=== PATIENT | male | born 1955 | race Caucasian/White ===

== ENCOUNTER → 2016-06-01 | Outpatient (CLI) | payer BC, MEDICARE ==
[~2016-06-01] MED LIST: AMBIEN PO; AMBIEN10 MG PO; ASPIRIN81 M2 PO; AXIRON30 MG/1.5; AXIRON90 ML TD; BYSTOLIC20 MG PO; FAMOTIDINE20 M1 PO; FAMOTIDINE20 MG PO; FLEXERIL10 MG PO; FLOMAX0.4 M1; FUROSEMIDE40 MG PO; GABAPENTIN400 M2 PO; HUMALOG MIX 75/10 ML SUBQ; HYDROCODON-ACE1 EAC7 PO; HYZAAR PO; LANTUS100 U/ML INJ; LIPITOR PO; LORAZEPAM1 MG PO; LOVAZA1 G PO; LOVAZA1 GM PO; MORPHINE SULFAT30 M3 PO; NORCO 10/3251 TAB; NOVOLOG MI100 UNIT/1 SUBQ; OLMSRTN-AMLDPN1 EAC4 PO; SYMLINPEN 1202.7 ML; SYMLINPEN2700 MCG/2; TOPROL XL PO; TRESIBA FL200 UNIT/1 SUBQ; VITAMIN D35000 UNIT PO; VITAMIN D350000 UNIT PO; ZESTRIL2.5 M1 PO; ZYLOPRIM100 MG PO
--- NOTE | ~2016-06-01 | CR63 ---
[facility] A Service of [facility] & [facility] RADIOLOGY TEXT RESULTS PATIENT: MIGUEL MALAVE LOCATION: [facility] : 57 UNIT #: [id number] AGE: [address]: Chuy Marin MD SEX: M ORDER DR: [id number] [facility] [address]. [place], [place] [address] [id number] O MR#: [id number] Acc #: [id number] NAME: MIGUEL MALAVE : 1955 SEX: M STUDY DATE/TIME: 06/01/2016 9:44 UNIT: [facility] ROOM: STUDY DESCRIPTION: CR Chest 2 View Attending Physician: Chuy Marin M.D. Ordering Physician: Chuy Marin M.D. Primary Care Physician: Gabe Cardoza M.D. MEDICAL IMAGING REPORT This report is preliminary unless electronic signature is present EXAM Chest 2 views dated 06/01/2016 COMPARISON Chest 2 views dated 06/18/2015. HISTORY Preop evaluation for left knee surgery. Shortness of air and cough today. FINDINGS 2 views of the chest were obtained. No acute cardiopulmonary disease. Lungs are well aerated. Heart and mediastinum are of normal size. Contiguous anterior endplate osteophytes are noted at multiple levels of the thoracic spine. Differential consideration includes diffuse idiopathic skeletal hyperostosis and ankylosing spondylitis. Dictated by... Sara Wells M.D. THIS IS AN ELECTRONICALLY VERIFIED REPORT Sara Wells M.D. at 06/02/2016 4:57 PM CPR/rnr TD: 06/01/2016 14:51 JOB #: [id number] MEDICAL IMAGING REPORT COPY
--- NOTE | ~2016-06-01 | CO ---
Unit #: [id number] #: [id number] Patient: MIGUEL MALAVE [id number] [address] [place], [place] [address] [id number] O MR#: [id number] NAME: MIGUEL MALAVE ROOM: Age: 61 Sex: M Admission Date: 06/01/2016 : 1955 Attending Physician: Chuy Marin M.D. Primary Care Physician: Gabe Cardoza M.D. Consultation Date: 06/01/2016 CONSULTATION REPORT REASON FOR CONSULTATION Preop medical evaluation prior to left total knee arthroplasty scheduled by Dr. Marin for 06/13/16. HISTORY OF PRESENT ILLNESS The patient is a 61-year-old male who presents to pre-procedural screening for the reasons indicated above. He has had a history of left knee pain and has complaints of the same during this interview today. He has no other complaints. He has been evaluated by Dr. Marin and scheduled for the above reference procedure. He denies chest, arm, neck, jaw pain or pressure. Denies dyspnea on exertion, paroxysmal nocturnal dyspnea, and orthopnea. He has a history of obstructive sleep apnea for which he uses auto adjusting VPAP with O2 titrated in on level 2. He denies palpitations, dizziness, presyncope or syncope. He will have intermittent lightheadedness with rapid position changes that resolve and has not resulted in falls or the need to sit down. He denies myocardial infarction, congestive heart failure, CVA, TIA, severe kidney disease or renal failure. He is diabetic on insulin. PAST MEDICAL HISTORY 1. Obesity, BMI 35. 2. Obstructive sleep apnea with VPAP use with O2 titrated and on level 2. 3. Hypertension. 4. Benign prostatic hypertrophy. 5. Hyperlipidemia. 6. History of chronic low back pain, established with Dr. Oneal in pain management. 7. History of back surgery, HNP and spinal fusion. 8. Neuropathy in bilateral feet, likely secondary to insulin dependent diabetes mellitus. 9. History of numbness of the right fifth finger. 10. Insomnia. 11. Anxiety. 12. Vitamin D deficiency. 13. Low testosterone. PAST SURGICAL HISTORY 1. Back surgery x3. 2. Bilateral carpal tunnel release. 3. Tonsillectomy. 4. Left knee arthroscopy. The patient denies a personal and family history of complications to Unit #: [id number] #: [id number] Patient: MIGUEL MALAVE anesthesia. ALLERGIES No known medication allergies. Denies latex allergies. Reports adverse reaction of feeling "jittery" if morphine given IV. CURRENT MEDICATIONS 1. [place] 10/325 mg tab, one p.o. b.i.d. p.r.n. pain. 2. NovoLog mix 70/30 FlexPen. 3. U100 insulin, one unit subcu b.i.d. per sliding scale. 4. Tresiba Flex Touch U200, 80 units b.i.d. 5. SymlinPen 60-120 units depending on blood sugar. 6. Flexeril 10 mg p.o. at bedtime. 7. Gabapentin 400 mg p.o. t.i.d. 8. Morphine sulfate ER 30 mg p.o. b.i.d. 9. Axiron 30 mg transdermally, two pumps under each arm daily. 10. Ambien 10 mg p.o. at bedtime p.r.n. insomnia. 11. Lorazepam 1 mg p.o. each evening. 12. Aspirin 81 mg p.o. daily. 13. Olmesartan/amlodipine/hydrochlorothiazide 40/10/25 mg tab, one p.o. daily. 14. Flomax 0.4 mg p.o. daily. 15. Bystolic 40 mg p.o. daily in the morning. 16. Lovaza 2 g p.o. daily. 17. Furosemide 40 mg p.o. daily. 18. Vitamin D3 5000 units p.o. daily. SOCIAL HISTORY Denies tobacco use and illicit drug use. Occasionally drinks a beer. FAMILY HISTORY Per review of Dr. Marin's office note and confirmation with the patient today: Father - stroke, cancer, high cholesterol and diabetes. Mother - hypertension, high cholesterol and diabetes. REVIEW OF SYSTEMS Rare episode of lightheadedness with standing too quickly and/or bending forward and standing up without associated symptoms. Denies bilateral lower extremity edema. Last dental visit approximately one year ago without painful teeth or gums. Established with Dr. Oneal as chronic pain management physician. A ten point review of systems was conducted and otherwise negative except as indicated under history of present illness above. PHYSICAL EXAMINATION GENERAL: 61-year-old male awake, alert, in no acute distress. VITAL SIGNS: Temperature 97.7, heart rate 60, respiratory rate 20, blood pressure 131/77. Oxygen saturation 96% on room air. HEENT: Atraumatic, normocephalic. Sclerae anicteric. No discharge from eyes, ears or nares. LYMPHS: No preauricular, postauricular, tonsillar, submental, anterior or posterior cervical adenopathy. ENDOCRINE: No thyromegaly, thyroid nodules or tenderness. RESPIRATORY: Clear to auscultation in all dotson bilaterally without wheezes, rhonchi or rales. CARDIOVASCULAR: S1, S2. Regular rate and rhythm without murmur or rub. GI: Bowel sounds positive x4 quadrants. Soft, nontender, nondistended. EXTREMITIES: No edema, cyanosis or clubbing. Unit #: [id number] #: [id number] Patient: MIGUEL MALAVE MUSCULOSKELETAL: Strength 5/5 all extremities bilaterally to flexion and extension. No obvious atrophy or tenderness. NEUROLOGICAL: Alert and oriented x3. Speech clear. Moves all extremities bilaterally and follows commands. DIAGNOSTIC STUDIES LABORATORY: WBC 7.5, hemoglobin 14.3, hematocrit 42.9, platelet count 153,000. Sodium 141, potassium 4.3, chloride 105, pO2 30, glucose 168, BUN 25, creatinine 1.2, calcium 8.8, AST 35, ALT 49, alkaline phos 80, bili total 0.8, total protein 6.7, albumin 3.8. Urinalysis negative without microscopic or culture indicated. PT 11.6, INR 1.1. Blood type A positive. Antibody screen pending at this time. MRSA screen pending. IMAGIN view chest x-ray report pending at this time. CARDIOVASCULAR: 12-lead EKG - sinus bradycardia, minimal voltage criteria for LVH, may be normal variant. Borderline ECG. Confirm tracing heading at this time. IMPRESSION Patient is a 61-year-old male who presents to pre-procedural screening for: 1. Preoperative evaluation prior to left total knee arthroplasty, scheduled by Dr. Marin: The patient's [place] Revised Cardiac Risk Index is equal to 0.4%. This represents the patient's perioperative risk of cardiac , fatal or nonfatal myocardial infarction, cardiopulmonary arrest, arrhythmia and/or pulmonary edema. This has been discussed in detail with the patient and he wishes to proceed with surgery as scheduled at this time. 2. Obstructive sleep apnea: The patient has been advised to bring his VPAP from home for use on home settings postoperatively and he has verbalized understanding of this information. The patient will be placed on SHANE protocol. 3. Obesity, BMI 35: Weight loss to recommended BMI is suggested. 4. Hypertension: Blood pressure is stable at this time. Will monitor and adjust medications and IV fluids accordingly. 5. Benign prostatic hypertrophy: Will continue Flomax and monitor for postoperative urinary retention. 6. Gastroesophageal reflux disease, stable. 7. Hyperlipidemia: Fish oil will be discontinued per order of Dr. Marin. 8. Chronic pain, history of back surgery, HNP and spinal fusion: The patient is established with Dr. Oneal. The patient tells me Dr. Oneal will manage his pain medication postoperatively. 9. Neuropathy both feet: The patient will be placed on fall precautions. 10. History of numbness right fifth finger. 11. Insulin dependent diabetes mellitus: Will continue home medications based on oral intake, postoperative Accu-Cheks. Will recommend constant carbohydrate diet as well. 12. Insomnia: Medications will be held pending pharmacy's recommendations for SHANE protocol postoperatively. Unit #: [id number] #: [id number] Patient: MIGUEL MALAVE 13. Anxiety: Lorazepam will be held per pharmacy recommendations/obstructive sleep apnea protocol. 14. Vitamin D deficiency: Will continue supplement. 15. Low testosterone: I have spoken with the clinical pharmacist and there is no recommendation in the literature which supports the need for the patient to discontinue testosterone perioperatively. Thank you for allowing us to participate in the care of this patient. Will gladly follow postop medical management pending order of Dr. Marin. Dictated by... Lisa Forrest A.P.R.N. for Shanel Grimes/jimmy TD: 06/02/2016 07:20 JOB #: [id number] CONSULTATION REPORT X Lisa Forrest APRN X CONSULTATION REPORT
--- NOTE | ~2016-06-01 | EKG ---
PATIENT: MIGUEL MALAVE UNIT #: [id number] Ventricular Rate: 57 BPM Atrial Rate: 57 BPM P-R Interval: 152 ms QRS Duration: 102 ms Q-T Interval: 424 ms QTC Calculation(Bezet): 412 ms P [place]: 30 degrees Calculated R [place]: -10 degrees Calculated T [place]: 6 degrees Diagnosis Line: Sinus bradycardia Diagnosis Line: Minimal voltage criteria for LVH, may be normal Diagnosis Line: variant Diagnosis Line: Otherwise normal ECG Diagnosis Line: No previous ECGs available Diagnosis Line: Confirmed by TRAVIS RESENDIZ MD ([id number]) on 06/02/2016 Diagnosis Line: 6:17:09 PM INTERPRETING MD: MARTÍN DUVAL
[2016-06-01 10:16] LABS: HEMATOCRIT 42.9 % (38.0-50.0); HEMOGLOBIN 14.3 gm/dL (13.0-16.0); MEAN CELL VOLUME 87.1 FL (83-96); MEAN CORPUSCULAR HEMOGLOBIN 29.1 PG (28-34); MEAN CORPUSCULAR HGB CONC 33.4 g/dL (30-36); RED BLOOD COUNT 4.92 X10e (3.90-5.60); RED CELL DISTRIBUTION WIDTH 13.7 % (11.0-15.5); WHITE BLOOD COUNT 7.5 X10e3 (4.0-10.5)
[2016-06-01 10:20] LABS: URINE APPEARANCE CLEAR; URINE BILIRUBIN NEG (NEG); URINE BLOOD NEG (NEG); URINE COLOR YELLOW; URINE GLUCOSE NEG (NEG); URINE KETONE NEG (NEG); URINE LEUKOCYTE ESTERASE NEG (NEG); URINE NITRATE NEG (NEG); URINE PROTEIN NEG (NEG); URINE SPECIFIC GRAVITY 1.022 (1.003-1.035)
[2016-06-01 10:24] LABS: URINE SOURCE CLEAN CATCH
[2016-06-01 10:25] LABS: CULTURE INDICATED? NO
[2016-06-01 10:30] LABS: INR 1.1; PROTHROMBIN TIME (PATIENT) 11.6 SECONDS (9.6-11.5)
[2016-06-01 11:18] LABS: ALBUMIN SERUM 3.8 g/dL (3.5-5.0); ALKALINE PHOSPHATASE 80 U/L (32-92); ALT (SGPT) 49 U/L (10-40); AST (SGOT) 35 U/L (10-42); BILIRUBIN,TOTAL 0.8 mg/dL (0.2-2.0); BLOOD UREA NITROGEN 25 mg/dL (9-23); BUN/CREATININE RATIO 20.83; CALCIUM SERUM 8.8 mg/dL (8.4-10.2); CARBON DIOXIDE 30 mmol/L (22-31); CHLORIDE 105 mmol/L (100-111); CREATININE SERUM 1.2 mg/dL (0.6-1.4); GLOM FILT RATE Estimated ABOVE60 mL/min (>60); GLUCOSE FASTING 168 mg/dL (70-110); POTASSIUM 4.3 mmol/L (3.5-5.1); PROTEIN TOTAL SERUM 6.7 g/dL (6.0-8.3); SODIUM 141 mmol/L (135-145)
== END | disposition home or self-care (01) ==
LOC: CAMB 07:40
PROVIDERS: Orthopaedic Surgery
DX: Z01.818 Encounter for other preprocedural examination (principal); M17.12 Unilateral primary osteoarthritis, left knee
CPT/HCPCS: 36415; 71020; 80053; 81003; 83036; 85027; 85610; 86850; 86900; 86901; 87070; 93005

== ENCOUNTER → 2016-07-11 | Outpatient (CLI) | payer BC, MEDICARE ==
[2016-07-11 08:04] LABS: HEMATOCRIT 41.5 % (38.0-50.0); HEMOGLOBIN 14.1 gm/dL (13.0-16.0); MEAN CELL VOLUME 85.8 FL (83-96); MEAN CORPUSCULAR HEMOGLOBIN 29.1 PG (28-34); MEAN CORPUSCULAR HGB CONC 33.9 g/dL (30-36); MEAN PLATELET VOLUME 7.8 FL (6.5-11.5); RED BLOOD COUNT 4.84 X10e (3.90-5.60); RED CELL DISTRIBUTION WIDTH 12.9 % (11.0-15.5); WHITE BLOOD COUNT 6.5 X10e3 (4.0-10.5)
[2016-07-11 08:08] LABS: INR 1.1; PROTHROMBIN TIME (PATIENT) 11.1 SECONDS (9.6-11.5)
[2016-07-11 08:28] LABS: ALBUMIN SERUM 3.6 g/dL (3.5-5.0); BILIRUBIN,TOTAL 0.5 mg/dL (0.2-2.0); BUN/CREATININE RATIO 23.33; CALCIUM SERUM 9.4 mg/dL (8.4-10.2); CREATININE SERUM 1.2 mg/dL (0.6-1.4); GLOM FILT RATE Estimated 65.4 mL/min (>60); POTASSIUM 3.8 mmol/L (3.5-5.1); PROTEIN TOTAL SERUM 6.4 g/dL (6.0-8.3)
[2016-07-11 09:08] LABS: URINE APPEARANCE CLEAR; URINE BILIRUBIN NEG (NEG); URINE BLOOD NEG (NEG); URINE COLOR YELLOW; URINE GLUCOSE NEG (NEG); URINE KETONE NEG (NEG); URINE LEUKOCYTE ESTERASE NEG (NEG); URINE NITRATE NEG (NEG); URINE PH 5.5 (5-8); URINE PROTEIN NEG (NEG); URINE SPECIFIC GRAVITY 1.016 (1.003-1.035)
[2016-07-11 09:12] LABS: URINE SOURCE CLEAN CATCH
[2016-07-11 09:14] LABS: CULTURE INDICATED? NO
== END | disposition home or self-care (01) ==
LOC: CAMB 07:23
PROVIDERS: Orthopaedic Surgery
DX: Z01.812 Encounter for preprocedural laboratory examination (principal); M17.12 Unilateral primary osteoarthritis, left knee; E11.9 Type 2 diabetes mellitus without complications; K21.9 Gastro-esophageal reflux disease without esophagitis; I10 Essential (primary) hypertension; G47.30 Sleep apnea, unspecified; Z79.01 Long term (current) use of anticoagulants
CPT/HCPCS: 36415; 80053; 81003; 83036; 85027; 85610; 86850; 86900; 86901; 87070

== ENCOUNTER 2016-07-18 07:23 | Inpatient (IN) | payer BC, MEDICARE ==
--- NOTE | ~2016-07-18 | OR ---
Unit #: [id number] #: [id number] Patient: MIGUEL MALAVE [id number] [address] [place], [place] [address] [id number] MR#: [id number] NAME: MIGUEL MALAVE ROOM: [facility] Date of Procedure: 07/18/2016 Admission Date: 07/18/2016 Surgeon: Chuy Marin M.D. : 1955 Attending Physician: Chuy Marin M.D. Primary Care Physician: Gabe Cardoza M.D. OPERATIVE REPORT PREOPERATIVE DIAGNOSIS Primary localized osteoarthritis of left knee with severe flexion contracture. POSTOPERATIVE DIAGNOSIS Primary localized osteoarthritis of left knee with severe flexion contracture. PROCEDURE PERFORMED Left total knee. LABORER PIPELINE Frederic. ANESTHESIA Adductor canal block plus general. ESTIMATED BLOOD LOSS About 150 to 200 mL. INDICATIONS FOR PROCEDURE This is a 61-year-old male with severe pain in the left knee. He has severe flexion contractures and has difficulty walking. X-rays show severe arthritis with [id number] changes. He is brought to the operating room for left total knee. DESCRIPTION OF PROCEDURE The patient was given 2 g of Kefzol. This will be continued postoperative, but discontinued within 23 hours from the start time of surgery. He was then given an adductor canal block, brought back to the operating room, given a general anesthetic. Tourniquet placed around the left thigh. The left leg was prepped and draped. Tourniquet inflated to 250. A straight anterior skin incision was made. Subcutaneous dissected away and a medial arthrotomy was performed. Patella was slid to the side. Osteophytes were removed from the femur. The intramedullary guide was used and the distal femur was cut in 6 degrees of valgus. We removed 12 mm of distal femur because of the flexion contracture. The patient then had the femur sized using the Attune sizing guide and was found to be a size 10. The anterior posterior cutting block was applied. The anterior and posterior cuts were made along with the chamfer cuts and then the trochlear groove cut. We then made the proximal tibial cut using a 0-degree cutting block. It was sized and found to be a size 8. Any Unit #: [id number] #: [id number] Patient: MIGUEL MALAVE remaining posterior condylar osteophytes were removed and any remaining meniscal fragments were debrided. The posterior capsule and periosteum were injected with ropivacaine. The trial femur was applied along with the trial tibia and we found that we needed a 5 mm insert. The knee had excellent extension and rotation. The tibia was marked. The alignment was appropriate as was the stability. We then measured the patella. It was found to be 26 mm thick, it was cut smooth at 14 and a 41 patella was the appropriate size. The 3 drill holes were made. Trial patella applied and it tracked properly. We then removed all the trials, used the drill and punch for the tibial tray. The knee was irrigated and dried while the cement was mixed and then all 3 components were cemented simultaneously. Once again, it was a size 10 femur cruciate retaining, size 8 tibia and a 41 patella from the Attune knee system. After the cement was hardened, then all the excess cement was removed. The 5 mm insert was applied. The patient then had the tourniquet released. The wound was irrigated with Betadine and bacitracin. The rest of the ropivacaine mixture was injected. The wound was closed using 0 Ethibond in the arthrotomy, 0 and 2-0 Vicryl in the subcutaneous, and Prineo Dermabond material was used in the skin. fast food assistant restaurant manager, Colin Conley was present throughout the entire case. Dictated by... Shanel Bah/ti TD: 07/19/2016 08:55 JOB #: [id number] OPERATIVE REPORT Page 1 of 1 X Chuy Marin MD X PROCEDURE OPERATIVE NOTE
--- NOTE | ~2016-07-18 | CO ---
Unit #: [id number] #: [id number] Patient: MIGUEL FINCH [id number] [address] [place], [place] [address] [id number] I MR#: [id number] NAME: MIGUEL FINCH ROOM: [facility] Age: 61 Sex: M Admission Date: 07/18/2016 : 1955 Attending Physician: Chuy Marin M.D. Primary Care Physician: Gabe Cardoza M.D. Consultation Date: 07/19/2016 CONSULTATION REPORT REASON FOR CONSULT Mild acute on chronic kidney disease. HISTORY OF PRESENT ILLNESS Mr. Finch is a very pleasant 61-year-old white male who is status post left total knee replacement yesterday whom we were asked to see for a slight bump in his postsurgery creatinine. Patient is followed by Dr. Ruelas at the office and was last seen in May where lisinopril was added. He is maintained on Tribenzor for his blood pressure and is a long-term diabetic. It looks like his baseline creatinine according to Dr. Ruelas is in the low 1s up to 1.55. His creatinine this morning was a little bit above that prompting this consultation. He has been getting pain medication, and his blood pressure has been running a little bit low. He is urination freely without a Ibrahim. He denies any shortness of breath, no swelling, no rashes, and no fevers or chills. PAST MEDICAL HISTORY 1. Chronic kidney disease. 2. Hypertension. 3. Diabetes. 4. Hyperlipidemia. 5. Benign prostatic hypertrophy. 6. Gastroesophageal reflux disease. 7. Chronic back pain. 8. Neuropathy. 9. Insomnia. 10. Anxiety. 11. Vitamin D deficiency. 12. Low testosterone. PAST SURGICAL HISTORY 1. Multiple back surgeries. 2. Carpal tunnel surgery. 3. Tonsillectomy. 4. Left knee arthroscopy. CURRENT MEDICATIONS 1. Levemir insulin as directed. 2. Coumadin as directed. 3. Lovenox 40 mg subcutaneous daily. 4. Normal saline at 100 mL/hour. 5. Celebrex was discontinued. 6. Senokot S twice daily. 7. MS Contin 30 mg twice daily. Unit #: [id number] #: [id number] Patient: MIGUEL FINCH 8. Ativan 1 mg at bedtime. 9. Baby aspirin daily. 10. Benicar 40 mg daily. 11. Norvasc 10 mg daily. 12. Hydrochlorothiazide 25 mg daily. 13. Flomax 0.4 mg daily. 14. Lasix 40 mg daily. 15. Ambien at bedtime. 16. Neurontin 400 mg t.i.d. 17. Pepcid 20 mg daily. 18. Allopurinol 100 mg daily. 19. Lisinopril 2.5 mg daily. 20. Coreg 25 mg twice daily. 21. Prospect-3 fish oil daily. 22. Sliding scale insulin. 23. P.r.n.s that do not contain any NSAIDS. ALLERGIES MORPHINE. FAMILY HISTORY Diabetes, stroke, cancer, and high cholesterol, as well as some hypertension. No family history of kidney problems or dialysis. SOCIAL HISTORY Patient is a former smoker according to our records. No alcohol or drug abuse. He has a very supportive present today. REVIEW OF SYSTEMS A complete 12-point review of systems was completed with the above findings. In addition, he denies any headaches or dizziness, no nosebleed, sore throat, or earache, no chest pain or palpitations, no cough or hemoptysis, no nausea, vomiting, or diarrhea, no dysuria or hematuria, no night sweats or hot flashes, no intolerance to heat or cold, no postop bleeding issues today, and no recent weight changes. Unless otherwise indicated, the review of systems was negative. PHYSICAL EXAMINATION VITAL SIGNS: Patient is afebrile, pulse 74, respiratory rate 18, and blood pressure 141/65 but did drop to as low as 105/50. Urine output has been 1550 mL. GENERAL: This is a 61-year-old male alert, oriented x3, and currently in no acute distress. HEENT: Head is atraumatic and normocephalic. Eyes show pink conjunctivae with no scleral icterus. No nasal drainage or nosebleed. Oropharynx is moist with narrow posterior pharyngeal airway. NECK: Thick with no JVD. HEART: Regular rate and rhythm with no significant murmur or rub appreciated. LUNGS: Clear with no wheezing or rhonchi. Breathing is nonlabored. ABDOMEN: Mildly obese, soft, and nontender. Bowel sounds are present without masses. No suprapubic fullness. EXTREMITIES: No lower extremity cyanosis or pitting edema. SKIN: Dry with no rashes. His left knee is bandaged. MUSCULOSKELETAL: No CVA tenderness to palpation. NEUROLOGIC: Cranial nerves are grossly intact with no gross motor deficits. LYMPHATICS: No neck cervical lymphadenopathy. Unit #: [id number] #: [id number] Patient: MIGUEL FINCH PSYCHIATRIC: Mood and affect appear normal. DIAGNOSTIC STUDIES LABORATORY: Urinalysis was benign with no blood or protein but did have glucose present. Last sugar was 420. Chemistry this morning noteworthy for a sodium of 135, potassium 5.1, chloride 101, bicarb 25, glucose 472, BUN 52, creatinine 1.7, and magnesium 1.8. Hemoglobin was 11.3. Again, baseline creatinine according to Dr. Ruelas's records is a creatinine up to 1.55, but his preop creatinine on July 11 was 1.2. Previous urines here have been benign as well. ASSESSMENT AND PLAN 1. Acute kidney injury. This is mild and appears to be related to the postoperative period with relatively low blood pressures while on an angiotensin receptor jose luis, diuretics, and an MAHOGANY inhibitor. These offending medicines will be held, and he is getting IV fluids. I do expect recovery, and hopefully, we will see better numbers tomorrow. No other workup needed at this time unless his kidney function does not improve. 2. Chronic kidney disease stage 3. Patient has known chronic kidney disease from hypertension and diabetes. He will need either his MAHOGANY inhibitor or his angiotensin receptor jose luis terminal carman. 3. Hypertension. We will relax blood pressure medicine in the postoperative period due to his pain medication causing lower blood pressures. These can be titrated further at home if needed. 4. Type 2 diabetes with acute poor control being managed by Medicine. 5. Status post left total knee replacement with all nonsteroidal antiinflammatory drugs held. 6. History of obstructive sleep apnea. 7. Hyperuricemia. Dr. Ruelas had recently started allopurinol, so I will update his uric acid level. 8. Benign prostatic hypertrophy with no urinary issues. I would like to thank Lisa Forrest, nurse practitioner, for this consult and the opportunity to participate in evaluation and care of Mr. Finch. Dictated by... Lio Kulwant Fontanez Jr., M.D. SJK/radha TD: 07/19/2016 16:17 JOB #: [id number] CONSULTATION REPORT Page 1 of 1 X Lio Fontanez MD X CONSULTATION REPORT
--- NOTE | ~2016-07-18 | DS ---
Unit #: [id number] #: [id number] Patient: MIGUEL MALAVE [id number] [facility] [address]. [place], [place] [address] [id number] I MR#: [id number] NAME: MIGUEL MALAVE ROOM: [facility] Age: 61 Sex: M Admission Date: 07/18/2016 : 1955 Discharge Date: 07/20/2016 Attending Physician: Chuy Marin M.D. Primary Care Physician: Gabe Cardoza M.D. DISCHARGE SUMMARY CONSULT PHYSICIAN Renal, which is Dr. Fontanez and [facility] for medical management. REASON FOR ADMISSION Severe osteoarthritis left knee. PROCEDURE Left total knee arthroplasty. HOSPITAL COURSE The patient was admitted to [facility] after a long history of severe osteoarthritis of the left knee. The patient has undergone the above procedure. Today the patient is in stable condition. His temperature is 98, blood pressure 125/54, his heart rate 62 and regular, respirations 16. His incision is healing well. His neurovascular exam is intact. He had 2+ pulses in his lower extremity. He did have a bump in his creatinine where he went up to 1.7. Renal recommends discontinuing lisinopril for now. The patient should have a regular follow up with his regular renal doctor postoperatively per the patient. The plan will be to send the patient to [facility]. DISPOSITION [facility] and then followed by [facility] after that. PERTINENT LABS His INR is 1.7. His creatinine is 1.3, hemoglobin 11.7. MEDICATIONS PER MED REC LIST He will be on his regular home medications. We will discontinue his lisinopril per renal. Will add Coumadin for DVT prophylaxis and [place] for pain management. FOLLOWUP INSTRUCTIONS 1. The patient will be transferred to [facility]. 2. He will need PT/INR done on 07/20/2016, 07/21/2016, 07/22/2016, 07/25/2016, 07/28/2016, 08/01/2016, 08/04/2016, 08/08/2016, 08/11/2016, 08/15/2016 and call the results to [phone] or fax to [phone]. 3. The patient should wear ALECIA hose during the day and off at night. 4. The patient should not drive until seen by Dr. Marin on 08/30/2016. 5. The patient will participate in physical therapy including active, active assist range of motion strengthening, progressive ambulation begin with a walker, progress to cane as tolerated. 6. Patient should followup in a couple of weeks with his regular renal doctor. Unit #: [id number] #: [id number] Patient: MIGUEL MALAVE Dictated by... Colin Conley P.A.-C- for Chuy Marin M.D. ASHLEY/ts TD: 07/20/2016 09:06 JOB #: [id number] DISCHARGE SUMMARY Page 1 of 1 X X DISCHARGE SUMMARY
--- NOTE | ~2016-07-18 | OR ---
Unit #: [id number] #: [id number] Patient: MIGUEL MALAVE [id number] [address] [place], [place] [address] [id number] MR#: [id number] NAME: MIGUEL MALAVE ROOM: [facility] Date of Procedure: 07/18/2016 Admission Date: 07/18/2016 Surgeon: Chuy Marin M.D. : 1955 Attending Physician: Chuy Marin M.D. Primary Care Physician: Gabe Cardoza M.D. OPERATIVE REPORT PREOPERATIVE DIAGNOSIS Primary localized osteoarthritis of the left knee. POSTOPERATIVE DIAGNOSIS Primary localized osteoarthritis of the left knee. PROCEDURE PERFORMED Left total knee. ASSISTANTS Jarvis and Zoltan. ANESTHESIA Adductor canal block plus general. ESTIMATED BLOOD LOSS About 100 mL. INDICATIONS FOR PROCEDURE This is a 61-year-old with severe pain in his left knee. He has had pain for months. It has gotten progressively worse. His x-rays show he has [id number] with subchondral sclerosis and periarticular osteophytes. He has tried injections and anti-inflammatories with no relief of the discomfort. DESCRIPTION OF PROCEDURE The patient was brought to the holding room, given 3 g of Kefzol. This will be continued postop, but discontinued within 23 hours from the start time of surgery. He was then given an adductor canal block and brought back to the operating room, given general anesthetic. Tourniquet placed around the left thigh. Left leg was prepped and draped in a sterile fashion. Tourniquet was inflated to 300. A straight anterior skin incision was made. The subcutaneous dissected away and a medial arthrotomy was performed. Patella was slid to the side. Osteophytes were removed from the femur. The intramedullary guide was used and a 6-degree valgus cut was made on the distal femur. The femur was sized using the ATTUNE sizing guide and found to be a size 10. The anterior-posterior cutting block was applied. Rotation was checked in the knee. Anterior and posterior cuts were made along with the chamfer cuts. We then made the trochlear groove cut. The proximal tibial cut was made using a 0-degree cutting block. It was sized and found to be a size 8. The posterior condylar osteophytes were removed. The remaining meniscal Unit #: [id number] #: [id number] Patient: MIGUEL MALAVE fragments were debrided. The posterior capsule and periosteum were injected with ropivacaine mixture. Trial femur was applied and the drill holes were made for lugs on the femoral component. The trial tibia was applied and we found that the 5 mm insert gave appropriate stability. Rotation of the tibia was marked and the external alignment guide showed appropriate alignment of the limb. The patella was grasped with 2 towel clips, measured about 28 mm thick, cut smooth at 17 and 41 patella was the appropriate size. Three drill holes were made. Trial patella applied and it tracked properly. We then removed all the trials, used the drill and punch for the tibial tray. The knee was irrigated and dried while the cement was mixed and then all 3 components were cemented simultaneously. Once again, it was a size 10 femur from the ATTUNE knee system cruciate retaining, size 8 tibial base plate with a 5 mm insert and a 41 patella. Any excess cement was removed. After the cement was hardened, the tourniquet was released. Hemostasis obtained. The wound was closed using 0 Ethibond in the arthrotomy, 0 and 2-0 Vicryl in the subcutaneous, and radha in the skin. assistant editor, Colin Conley was present throughout the entire case. Dictated by... Shanel Bah/ti TD: 07/24/2016 22:47 JOB #: [id number] OPERATIVE REPORT Page 1 of 1 X Chuy Marin MD PROCEDURE OPERATIVE NOTE
[2016-07-18 08:26] LABS: INR 1.1; PROTHROMBIN TIME (PATIENT) 11.1 SECONDS (9.6-11.5)
[2016-07-19 03:51] LABS: HEMATOCRIT 33.7 % (38.0-50.0); HEMOGLOBIN 11.3 gm/dL (13.0-16.0)
[2016-07-19 04:01] LABS: INR 1.7
[2016-07-19 04:04] LABS: PROTHROMBIN TIME (PATIENT) 18.7 SECONDS (9.6-11.5)
[2016-07-19 04:09] LABS: BUN/CREATININE RATIO 30.58; CALCIUM SERUM 7.9 mg/dL (8.4-10.2); CREATININE SERUM 1.7 mg/dL (0.6-1.4); GLOM FILT RATE Estimated 42.9 mL/min (>60); MAGNESIUM 1.8 mg/dL (1.6-3.0); POTASSIUM 5.1 mmol/L (3.5-5.1)
[2016-07-19 12:09] LABS: URINE APPEARANCE CLEAR; URINE BILIRUBIN NEG (NEG); URINE BLOOD NEG (NEG); URINE COLOR YELLOW; URINE GLUCOSE >1000 MG/DL (NEG); URINE KETONE NEG (NEG); URINE LEUKOCYTE ESTERASE NEG (NEG); URINE NITRATE NEG (NEG); URINE PROTEIN NEG (NEG); URINE SPECIFIC GRAVITY 1.017 (1.003-1.035); URINE UROBILINOGEN 0.2 MG/DL (NEG)
[2016-07-19 12:13] LABS: CULTURE INDICATED? NO
[2016-07-20 03:11] LABS: HEMATOCRIT 35.2 % (38.0-50.0); HEMOGLOBIN 11.7 gm/dL (13.0-16.0)
[2016-07-20 03:22] LABS: INR 1.7; PROTHROMBIN TIME (PATIENT) 18.8 SECONDS (9.6-11.5)
[2016-07-20 03:42] LABS: BUN/CREATININE RATIO 36.92; CREATININE SERUM 1.3 mg/dL (0.6-1.4); GLOM FILT RATE Estimated 59.3 mL/min (>60); MAGNESIUM 2.2 mg/dL (1.6-3.0); POTASSIUM 4.1 mmol/L (3.5-5.1)
== END 2016-07-20 15:35 | DRG 470 ==
LOC: CSUR 07:23 → CPACUOF 07:24 → C4B 11:55
PROVIDERS: Nurse Practitioner; Orthopaedic Surgery
PROC: 0SRD0J9 Replacement of Left Knee Joint with Synthetic Substitute, Cemented, Open Approach (ICD-10-PCS; principal; 2016-07-18 09:00)
DX: M17.12 Unilateral primary osteoarthritis, left knee (principal); N17.9 Acute kidney failure, unspecified; G62.9 Polyneuropathy, unspecified; E11.65 Type 2 diabetes mellitus with hyperglycemia; N18.3 Chronic kidney disease, stage 3 (moderate); D62 Acute posthemorrhagic anemia; K21.9 Gastro-esophageal reflux disease without esophagitis; N40.0 Benign prostatic hyperplasia without lower urinary tract symptoms; E66.9 Obesity, unspecified; Z68.35 Body mass index [BMI] 35.0-35.9, adult; I12.9 Hypertensive chronic kidney disease with stage 1 through stage 4 chronic kidney disease, or unspecified chronic kidney disease; G47.00 Insomnia, unspecified; F41.9 Anxiety disorder, unspecified; E55.9 Vitamin D deficiency, unspecified; Z79.01 Long term (current) use of anticoagulants; Z79.4 Long term (current) use of insulin; E79.0 Hyperuricemia without signs of inflammatory arthritis and tophaceous disease
CPT/HCPCS: 80048; 81003; 82947; 83735; 84295; 84550; 85014; 85018; 85610; 94760; 94761; 97110; 97116; 97163; 97166; 97530; 97535; C1776; G8978-GP; G8979-GP; G8980-GP; G8987-GO; G8988-GO; J0131; J0171; J0690; J0735; J1100; J1170; J1650; J1815; J1885; J2250; J2405; J2795; J3010

== ENCOUNTER → 2016-09-19 | Day surgery (SDC) | payer BC, MEDICARE ==
--- NOTE | ~2016-09-19 | OR ---
Unit #: [id number] #: [id number] Patient: MIGUEL MALAVE [id number] [address] [address] [id number] MR#: [id number] NAME: MIGUEL MALAVE ROOM: Date of Procedure: 09/19/2016 Admission Date: 09/19/2016 Surgeon: Chuy Marin M.D. : 1955 Attending Physician: Chuy Marin M.D. Primary Care Physician: Gabe Cardoza M.D. OPERATIVE REPORT PREOPERATIVE DIAGNOSIS Arthrofibrosis, left total knee. POSTOPERATIVE DIAGNOSIS Arthrofibrosis, left total knee. PROCEDURE PERFORMED Manipulation, left knee. INDICATIONS FOR PROCEDURE The patient had a left total knee performed. He has had very poor motion postoperatively. He was brought to the operating room today for manipulation. DESCRIPTION OF PROCEDURE The patient was brought to the operating room, given general anesthetic. Under anesthesia, his range of motion was -10 to about 55 with palpable and audible release of adhesions, we were able to get his flexion up to about 85, almost 90. He then had his general anesthetic reversed. He was transferred to the recovery room. Dictated by... Shanel Bah/ti TD: 09/20/2016 01:31 JOB #: [id number] OPERATIVE REPORT Page 1 of 1 X Chuy Marin MD X PROCEDURE OPERATIVE NOTE
[2016-09-19 06:40] LABS: HEMATOCRIT 39.6 % (38.0-50.0); HEMOGLOBIN 13.1 gm/dL (13.0-16.0); MEAN CORPUSCULAR HEMOGLOBIN 27.4 PG (28-34); MEAN PLATELET VOLUME 7.9 FL (6.5-11.5); RED BLOOD COUNT 4.77 X10e (3.90-5.60); RED CELL DISTRIBUTION WIDTH 14.1 % (11.0-15.5)
[2016-09-19 06:42] LABS: URINE APPEARANCE CLEAR; URINE BILIRUBIN NEG (NEG); URINE BLOOD NEG (NEG); URINE COLOR YELLOW; URINE GLUCOSE 100 MG/DL (NEG); URINE KETONE NEG (NEG); URINE LEUKOCYTE ESTERASE NEG (NEG); URINE NITRATE NEG (NEG); URINE PROTEIN NEG (NEG)
[2016-09-19 06:45] LABS: CULTURE INDICATED? NO; URINE SOURCE CLEAN CATCH
[2016-09-19 07:05] LABS: BUN/CREATININE RATIO 28.33; CREATININE SERUM 1.2 mg/dL (0.6-1.4); GLOM FILT RATE Estimated 65.4 mL/min (>60)
== END | disposition home or self-care (01) ==
LOC: CSUR 05:52
PROVIDERS: Orthopaedic Surgery
DX: M24.662 Ankylosis, left knee (principal); E11.9 Type 2 diabetes mellitus without complications; I10 Essential (primary) hypertension; M17.12 Unilateral primary osteoarthritis, left knee; K21.9 Gastro-esophageal reflux disease without esophagitis; G47.33 Obstructive sleep apnea (adult) (pediatric); N40.0 Benign prostatic hyperplasia without lower urinary tract symptoms; Z79.82 Long term (current) use of aspirin; Z79.4 Long term (current) use of insulin; Z79.891 Long term (current) use of opiate analgesic; Z96.652 Presence of left artificial knee joint; Z98.890 Other specified postprocedural states
CPT/HCPCS: 80048; 81003; 82947; 85027; J1170; J3010

== ENCOUNTER → 2016-12-08 | Outpatient (CLI) | payer BC, MEDICARE ==
[2016-12-08 09:33] LABS: HEMATOCRIT 36.8 % (38.0-50.0); HEMOGLOBIN 12.6 gm/dL (13.0-16.0); MEAN CELL VOLUME 82.6 FL (83-96); MEAN CORPUSCULAR HEMOGLOBIN 28.3 PG (28-34); MEAN CORPUSCULAR HGB CONC 34.2 g/dL (30-36); MEAN PLATELET VOLUME 7.2 FL (6.5-11.5); RED BLOOD COUNT 4.46 X10e (3.90-5.60); RED CELL DISTRIBUTION WIDTH 16.1 % (11.0-15.5); WHITE BLOOD COUNT 4.4 X10e3 (4.0-10.5)
== END | disposition home or self-care (01) ==
LOC: CLAB 08:49
PROVIDERS: Nurse Practitioner
DX: M25.562 Pain in left knee (principal); M25.662 Stiffness of left knee, not elsewhere classified
CPT/HCPCS: 36415; 85027; 85652; 86140